=== PATIENT | female | born 2005 | race Caucasian/White ===

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

== ENCOUNTER 2024-02-12 09:27 | Emergency (ER) | payer BC, OTHER ==
[~2024-02-12] VITALS: Ht 160 cm; Wt 86.2 kg
[2024-02-12 10:19] LABS: Source, Urine Clean Catch
[2024-02-12 10:23] LABS: Appearance, Urine Hazy (Clear); Bilirubin, Urine Neg (Neg); Blood, Urine Neg (Neg); Color, Urine Yellow (P-Yellow); Glucose Qualitative, Urine Neg (Neg); Ketones, Urine Neg (Neg); Leukocyte Esterase, Urine Neg (Neg); Nitrite, Urine Neg (Neg); Protein, Urine Neg (Neg); Urobilinogen, Urine NORM (Normal)
[2024-02-12 10:29] LABS: White Blood Cells, Urine Not Seen /hpf (0-5)
[2024-02-12 10:30] LABS: Amorphous Heavy (0-Heavy); Bacteria Rare /hpf; Red Blood Cells, Urine Not Seen /hpf (0-2); Squamous Epithelial Cells Mod /hpf (Few)
[2024-02-12 10:38] LABS: BASOPHILS ABSOLUTE AUTO 0.04 K/mm3 (0.00-0.23); BASOPHILS PERCENT AUTO 1 % (0-2); EOSINOPHILS PERCENT AUTO 4 % (0-6); Hematocrit 39.1 % (33.0-51.0); Hemoglobin 13.7 g/dL (11.5-16.0); IMMATURE GRAN ABSOLUTE AUTO 0.02 K/mm3 (0.00-0.10); IMMATURE GRAN PERCENT AUTO 0 % (0-1); LYMPHOCYTES ABSOLUTE AUTO 1.49 K/mm3 (0.84-5.20); LYMPHOCYTES PERCENT AUTO 18 % (21-46); MONOCYTES ABSOLUTE AUTO 0.48 K/mm3 (0.16-1.47); MONOCYTES PERCENT AUTO 6 % (4-13); Mean Corpuscular HGB 31.4 pg (26.0-34.0); Mean Corpuscular Volume 90 fL (80-100); Mean Platelet Volume 9.8 fL (9.1-12.4); NEUTROPHILS ABSOLUTE AUTO 5.76 K/mm3 (1.96-9.15); NEUTROPHILS PERCENT AUTO 71 % (41-73); Platelet Count 265 K/mm3 (150-400); RDW Coefficient Variation 12.5 % (11.7-14.2); Red Blood Cell Count 4.37 M/mm3 (3.80-5.20); White Blood Cell Count 8.09 K/mm3 (4.00-11.30)
[2024-02-12] MEDS ORDERED: NS 1,000 ML IV SCH (10:40)
[2024-02-12] MEDS ORDERED: Acetaminophen 500 MG Tab PO ONE (10:40)
[2024-02-12] MEDS ORDERED: Metoclopramide HCl 5MG / ML 2ML Vial IV ONE (10:40)
[2024-02-12] MEDS ORDERED: Dexamethasone Sod Phos 10 MG/ML 1ML VIAL IV ONE (10:40)
[2024-02-12 10:59] LABS: Albumin, Blood 3.4 g/dL (3.4-5.0); Albumin/Globulin Ratio 0.8 (0.8-1.8); Bilirubin, Total 0.2 mg/dL (0.1-1.0); Bun/Creatinine Ratio 12.5 (12.0-20.0); Calcium, Blood 9.5 mg/dL (8.5-10.1); Creatinine, Blood 0.56 mg/dL (0.40-1.00); Globulin, Blood 4.4 g/dL (2.2-4.0); Potassium, Blood 3.9 mmol/L (3.5-5.5); Total Protein, Blood 7.8 g/dL (6.4-8.2)
[2024-02-12 12:11] VITALS: BP 128/89
== END 2024-02-12 12:15 | disposition home or self-care (01) ==
LOC: ER 09:27
PROVIDERS: Physician Assistant
DX: R51.9 Headache, unspecified (principal); I10 Essential (primary) hypertension; Z79.899 Other long term (current) drug therapy
CPT/HCPCS: 70450; 80053; 81001; 85025; 96374; 99284-25; A9270; J1100; J2765; J7030

== ENCOUNTER 2024-08-06 18:55 | Inpatient (IN) | payer OTHER ==
[~2024-08-06] VITALS: Ht 160 cm; Wt 102.0 kg
[2024-08-06] MEDS ORDERED: OXYTOCIN/RINGER'S LACTATE 500 ML IV PRN (19:45)
[2024-08-06] MEDS ORDERED: Oxytocin 10 Unit / ML Vial IM PRN (19:45)
[2024-08-06] MEDS ORDERED: Misoprostol 200 MCG Tab PR PRN (19:45)
[2024-08-06] MEDS ORDERED: Misoprostol 200 MCG Tab BC PRN (19:45)
[2024-08-06] MEDS ORDERED: Carboprost Tromethamine 250 MCG/ML 1ML Amp IM PRN (19:45)
[2024-08-06] MEDS ORDERED: Penicillin G Potassium 5,000,000 UNITS in NS 250 ML IV ONE (19:45)
[2024-08-06] MEDS ORDERED: Methylergonovine Maleate 0.2MG / ML 1ML Amp IM PRN (19:45)
[2024-08-06] MEDS ORDERED: Lactated Ringer's 1,000 ML IV PRN ×4 (19:45→19:50)
[2024-08-06] MEDS ORDERED: FentaNYL 2mcg/ml-Bup 0.1% Epd 250 ML EPI PRN (19:50)
[2024-08-06] MEDS ORDERED: Calcium Carbonate 500 MG Tab Chew PO PRN (19:50)
[2024-08-06] MEDS ORDERED: Ondansetron HCl 2 MG / ML 2ML Vial IV PRN (19:50)
[2024-08-06] MEDS ORDERED: Acetaminophen 500 MG Tab PO PRN (19:50)
[2024-08-06] MEDS ORDERED: ePHEDrine Sulfate 50 MG/ML 1ML Injection XX PRN (19:50)
[2024-08-06 19:55] VITALS: BP 134/84
[2024-08-06] MEDS ORDERED: Misoprostol 25 MCG Tab VAG SCH (20:00)
[2024-08-06 21:11] LABS: BASOPHILS ABSOLUTE AUTO 0.04 K/mm3 (0.00-0.23); BASOPHILS PERCENT AUTO 1 % (0-2); EOSINOPHILS ABSOLUTE AUTO 0.34 K/mm3 (0.00-0.68); EOSINOPHILS PERCENT AUTO 4 % (0-6); Hematocrit 32.1 % (33.0-51.0); Hemoglobin 11.4 g/dL (11.5-16.0); IMMATURE GRAN ABSOLUTE AUTO 0.03 K/mm3 (0.00-0.10); IMMATURE GRAN PERCENT AUTO 0 % (0-1); LYMPHOCYTES PERCENT AUTO 16 % (21-46); MONOCYTES ABSOLUTE AUTO 0.63 K/mm3 (0.16-1.47); MONOCYTES PERCENT AUTO 7 % (4-13); Mean Corpuscular HGB 31.1 pg (26.0-34.0); Mean Corpuscular HGB Conc 35.5 g/dL (31.5-36.5); Mean Corpuscular Volume 88 fL (80-100); Mean Platelet Volume 10.5 fL (9.1-12.4); NEUTROPHILS ABSOLUTE AUTO 6.09 K/mm3 (1.96-9.15); NEUTROPHILS PERCENT AUTO 71 % (41-73); Platelet Count 241 K/mm3 (150-400); RDW Coefficient Variation 12.9 % (11.7-14.2); RDW Standard Deviation 40.7 fL (35.1-46.3); Red Blood Cell Count 3.67 M/mm3 (3.80-5.20); White Blood Cell Count 8.53 K/mm3 (4.00-11.30)
[2024-08-06 23:45] VITALS: BP 132/84
[2024-08-07] VITALS (16 sets, daily range): BP systolic 123–144; BP diastolic 75–94
[2024-08-07] MEDS ORDERED: Labetalol HCL 100 MG TAB PO ONE (09:55)
[2024-08-07] MEDS ORDERED: Labetalol HCL 100 MG TAB PO SCH (14:00)
[2024-08-07] MEDS ORDERED: OXYTOCIN/RINGER'S LACTATE 500 ML IV SCH (18:00)
[2024-08-07] MEDS ORDERED: Penicillin G Potassium 2,500,000 UNITS in Dextrose 5% 100 ML IV SCH ×2 (23:00)
[2024-08-08] VITALS (38 sets, daily range): BP systolic 118–167; BP diastolic 63–96
[2024-08-08] MEDS ORDERED: Lanolin Cream ONE (01:46)
[2024-08-08] MEDS ORDERED: Tranexamic Acid 100 ML IV PRN (19:45)
[2024-08-08] MEDS ORDERED: Azithromycin 500 MG in NS 250 ML IV SCH (19:55)
[2024-08-08] MEDS ORDERED: Lactated Ringer's 1,000 ML IV PRN (19:55)
[2024-08-08] MEDS ORDERED: CeFAZolin Sodium 2,000 MG in NS 100 ML IV SCH (19:55)
[2024-08-08] MEDS ORDERED: Metoclopramide HCl 5MG / ML 2ML Vial ONE (20:11)
[2024-08-08] MEDS ORDERED: FentaNYL Citrate 50 MCG/ML 2 ML Injection ONE (20:33)
[2024-08-08] MEDS ORDERED: Lidocaine HCl 2% 10 ML SDA ONE (20:33)
[2024-08-08] MEDS ORDERED: Oxytocin 10 Unit / ML Vial ONE (20:33)
[2024-08-08] MEDS ORDERED: Ondansetron HCl 2 MG / ML 2ML Vial ONE (21:15)
[2024-08-08 21:35] LABS: PCO2 Cord - Arterial 56.4 mmHg (40-50); PO2 Cord - Arterial < 14.0 mmHg (16-20); pH Cord - Arterial 7.28 (7.28-7.35)
[2024-08-08 21:36] LABS: PCO2 Cord - Venous 46.1 mmHg (40-50); PO2 Cord - Venous 15.4 mmHg (28-32); pH Umbilical Cord - Venous 7.34 (7.26-7.35)
[2024-08-08] MEDS ORDERED: Midazolam HCl 1MG / ML 2ML Vial ONE (21:37)
[2024-08-08] MEDS ORDERED: propofoL 20 ML IV ONE (21:42)
[2024-08-08] MEDS ORDERED: Ketamine HCl 100 MG / ML 5ML Vial ONE (21:43)
[2024-08-08] MEDS ORDERED: Ketorolac Tromethamine 30mg Vial ONE (21:46)
[2024-08-08] MEDS ORDERED: Ondansetron HCl 2 MG / ML 2ML Vial IV PRN (22:30)
[2024-08-08] MEDS ORDERED: Simethicone 80 MG Chew PO PRN (22:35)
[2024-08-08] MEDS ORDERED: Promethazine HCl 12.5 MG Supp PR PRN (22:35)
[2024-08-08] MEDS ORDERED: Lanolin Cream TOP PRN (22:35)
[2024-08-08] MEDS ORDERED: Acetaminophen 500 MG Tab PO PRN (22:35)
[2024-08-08] MEDS ORDERED: Promethazine HCl 25 MG Tab PO PRN (22:35)
[2024-08-08] MEDS ORDERED: OxyCODONE 5 mg/Acetamin 325 mg TABLET PO PRN (22:35)
[2024-08-08] MEDS ORDERED: Morphine Sulfate 4 MG/1 ML Injection IV PRN (22:35)
[2024-08-08] MEDS ORDERED: OXYTOCIN/RINGER'S LACTATE 500 ML IV SCH (22:40)
[2024-08-08] MEDS ORDERED: Magnesium Hydroxide Conc 10 ML UDC PO PRN (22:40)
[2024-08-08] MEDS ORDERED: Misoprostol 200 MCG Tab PR PRN (22:40)
[2024-08-08] MEDS ORDERED: Promethazine HCl 25 MG Supp PR PRN (22:40)
[2024-08-08] MEDS ORDERED: Lactated Ringer's 1,000 ML IV SCH (22:40)
[2024-08-08] MEDS ORDERED: Ketorolac Tromethamine 30mg Vial IV SCH (23:00)
[2024-08-09] VITALS (9 sets, daily range): BP systolic 127–142; BP diastolic 70–79
[2024-08-09] MEDS ORDERED: Ibuprofen 400 MG Tab PO SCH
[2024-08-09] MEDS ORDERED: Metoclopramide HCl 5MG / ML 2ML Vial IV ONE
[2024-08-09] MEDS ORDERED: CeFAZolin Sodium 2,000 MG in NS 100 ML IV SCH (05:00)
[2024-08-09 07:21] LABS: BASOPHILS ABSOLUTE AUTO 0.03 K/mm3 (0.00-0.23); BASOPHILS PERCENT AUTO 0 % (0-2); EOSINOPHILS ABSOLUTE AUTO 0.12 K/mm3 (0.00-0.68); EOSINOPHILS PERCENT AUTO 1 % (0-6); Hematocrit 26.3 % (33.0-51.0); IMMATURE GRAN ABSOLUTE AUTO 0.02 K/mm3 (0.00-0.10); IMMATURE GRAN PERCENT AUTO 0 % (0-1); LYMPHOCYTES PERCENT AUTO 17 % (21-46); MONOCYTES ABSOLUTE AUTO 0.83 K/mm3 (0.16-1.47); MONOCYTES PERCENT AUTO 10 % (4-13); Mean Corpuscular HGB 30.7 pg (26.0-34.0); Mean Corpuscular HGB Conc 34.2 g/dL (31.5-36.5); Mean Corpuscular Volume 90 fL (80-100); Mean Platelet Volume 10.6 fL (9.1-12.4); NEUTROPHILS PERCENT AUTO 71 % (41-73); Platelet Count 178 K/mm3 (150-400); RDW Coefficient Variation 13.2 % (11.7-14.2); RDW Standard Deviation 42.8 fL (35.1-46.3); Red Blood Cell Count 2.93 M/mm3 (3.80-5.20)
[2024-08-09] MEDS ORDERED: Prenatal Vit/FE Fumarate/FA 1 Tab PO SCH (09:00)
[2024-08-09] MEDS ORDERED: Docusate Sodium 100 MG Cap PO SCH (09:00)
[2024-08-09] MEDS ORDERED: Labetalol HCL 100 MG TAB PO SCH (09:00)
[2024-08-09] MEDS ORDERED: Percocet 5-3251 EACH (11:37)
[2024-08-09] MEDS ORDERED: IBUP800 PO (11:38)
[2024-08-10] MEDS ORDERED: Ibuprofen 400 MG Tab PO PRN (02:00)
[2024-08-10 04:23] VITALS: BP 124/65
[2024-08-10 07:42] VITALS: BP 134/75
[2024-08-10] MEDS ORDERED: DOCU100 PO (12:05)
[2024-08-10] MEDS ORDERED: DULCOLAX400 MG/5 M PO (12:06)
[2024-08-10] MEDS ORDERED: SIME80CH PO (12:07)
[2024-08-10] MEDS ORDERED: PRENATAL TABLE1 EAC2 PO (12:07)
[2024-08-10 12:14] VITALS: BP 128/76
== END 2024-08-10 13:25 | disposition home or self-care (01) | DRG 788 ==
LOC: OBS 18:55 → BC 19:07
PROVIDERS: ADMIT Obstetrics & Gynecology
PROC: 3E0P7VZ Introduction of Hormone into Female Reproductive, Via Natural or Artificial Opening (ICD-10-PCS; 2024-08-06)
PROC: 4A1HXCZ Monitoring of Products of Conception, Cardiac Rate, External Approach (ICD-10-PCS; 2024-08-06)
PROC: 10907ZC Drainage of Amniotic Fluid, Therapeutic from Products of Conception, Via Natural or Artificial Opening (ICD-10-PCS; 2024-08-07)
PROC: 3E033VJ Introduction of Other Hormone into Peripheral Vein, Percutaneous Approach (ICD-10-PCS; 2024-08-07)
PROC: 10D00Z1 Extraction of Products of Conception, Low, Open Approach (ICD-10-PCS; principal; 2024-08-08 20:00)
DX: O10.92 Unspecified pre-existing hypertension complicating childbirth (principal); O36.63X0 Maternal care for excessive fetal growth, third trimester, not applicable or unspecified; Z3A.38 38 weeks gestation of pregnancy; Z37.0 Single live birth; O62.1 Secondary uterine inertia; Z91.040 Latex allergy status
CPT/HCPCS: 36415; 51702; 82803; 85025; 86850; 86900; 86901; A9270; J0456; J0690; J1885; J2003; J2250; J2405; J2540; J2590; J2704; J2765; J3010; J7050; J7120